=== PATIENT | female | born 1980 | race Two or more races ===

== ENCOUNTER 2016-08-11 13:12 | Emergency (ER) | payer OTHER ==
--- NOTE | 2016-08-11 14:57 | UCPHY ---
H & P Time Seen by Provider: 08/11/16 14:39 Patient Type: Established HPI/ROS: CHIEF COMPLAINT: kicked in the R knee overlying the patella ligament HISTORY OF PRESENT ILLNESS: 35-year-old female playing soccer yesterday. She was collided by another player. There is no actual direct fall to the ground. She believes being struck overlying the distal aspect of the patella by the opponents knee directly. She was pain with walking as a 20 any weight on the leg. When she is laying flat the bed really does not bother her much. She is right-handed. 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 She was applying some icy Hot substance to it REVIEW OF SYSTEMS: Constitutional - no fevers or chills Musculoskeletal - no joint or muscle pain. Integument - no rashes or wounds Neurological - no numbness, tingling, or paresthesias. Smoking Status: Never smoked Physical Exam: General Appearance: Alert, no distress. Afebrile. Extremities: With respect to the right knee the neurovascular status intact. The skin is clear. There is particular tenderness over the patellar ligament as of the patellar tendon itself but there is no effusion. The Elaine's and drawer signs are negative. The collateral ligaments are intact in solid without any pain. I am unable to perform a Kadeem's secondary to the decreased range of motion as she can only get to 90 Neurological: NV intact. Skin: Skin is intact. Warm and dry, no rashes. no lymphangitis. . Constitutional: Initial Vital Signs Temperature (C) 36.7 C 08/11/16 13:31 Heart Rate 77 08/11/16 13:31 Respiratory Rate 18 08/11/16 13:31 Blood Pressure 101/77 08/11/16 13:31 O2 Sat (%) 94 08/11/16 13:31 O2 Delivery Mode Room Air Allergies/Adverse Reactions: No Known Allergies Allergy (Verified 08/11/16 13:31) Home Medications: Medication Instructions Recorded Thyroid 11/12/13 Medical Decision Making Differential Diagnosis: The differential diagnosis includes but is not limited to: Fracture, Sprain, Strain, Dislocation, Nerve injury, contusion Departure - Departure Disposition: Home, Routine, Self-Care Clinical Impression: patellar ligament contusion Knee contusion Qualifiers: Encounter type: initial encounter Laterality: right Qualified Code(s): S80.01XA - Contusion of right knee, initial encounter Condition: Good Instructions: Contusion in Adults (ED), Knee Pain (ED) Additional Instructions: Ice Use an ice cube for ice massage to the area specifically Ibuprofen 600 mg, 3 times a day, as needed for a week - with food. Walk as well as your able, but avoid stairs. Use your good leg up, then the bad leg down the stairs first. Referrals: MIKA JAMES,. [Primary Care Provider] - As per Instructions - PQRS PQRS Measurement: NA
[2016-08-11 15:02] VITALS: BP 110/78; PULSE 75; RESP 16; TEMP 97.9; O2SAT 96
== END 2016-08-11 15:02 | disposition home or self-care (01) ==
LOC: CED 13:12
DX: S80.01XA Contusion of right knee, initial encounter (principal); W50.0XXA Accidental hit or strike by another person, initial encounter; Y93.66 Activity, soccer
CPT/HCPCS: 99214-PO; G0463-PO

== ENCOUNTER 2017-08-16 21:19 | Emergency (ER) | payer SELFPAY ==
--- NOTE | 2017-08-16 21:33 | EDPHY ---
H & P Time Seen by Provider: 08/16/17 21:26 HPI/ROS: 36 yo F presents c/o twisted her ankle playing soccer 2 weeks ago and continues to have pain, able to walk, minimal swelling, hurts more when moving side to side. Review of systems General no fever no chills no weakness HEENT no eye pain no eye discharge. No eye redness, no sore throat Respiratory no cough, no shortness of breath Cardiac no chest pain, no peripheral edema GI no abdominal pain, no diarrhea, no constipation, no nausea, no vomiting no flank pain, no hematuria, no dysuria Musculoskeletal no myalgias, positive joint pain Heme no easy bruising, no easy bleeding Endo no polyuria, no polydipsia Skin no rashes, no pruritus Neuro no syncope, no dizziness, no headaches Psych is no suicidal ideation, no homicidal ideation Past Medical/Surgical History: non contributory Social History: no alcohol, tobacco or drug use Smoking Status: Never smoked Physical Exam: 36 yo F alert and oriented in nad non toxic appearance at, nc no resp distress heart rrr ext right ankle ttp at lateral malleolus, minimal swelling, from, no laxity, pos ttp of 5th metatarsal Allergies/Adverse Reactions: No Known Allergies Allergy (Unverified 08/16/17 21:23) Home Medications: Medication Instructions Recorded Levothyroxine 08/16/17 Medical Decision Making ED Course/Re-evaluation: pt seen and evaluated for right ankle pain for 2 weeks duration. xray ankle neg foot neg imp right ankle sprain plan edilia wrap f/u pcp Differential Diagnosis: differential diagnosis considered but not limited to ankle sprain, foot sprain, ankle fracture, 5th metatarsal fracture Departure - Departure Disposition: Home, Routine, Self-Care Clinical Impression: Right ankle sprain Condition: Good Instructions: Ankle Sprain (ED) Referrals: [facility] [Provider Group] - As per Instructions Print Language: Turkish
== END 2017-08-16 22:15 | disposition home or self-care (01) ==
LOC: MERGE 21:19 → CED 21:19
DX: S93.401A Sprain of unspecified ligament of right ankle, initial encounter (principal); X58.XXXA Exposure to other specified factors, initial encounter; Y99.8 Other external cause status; Y93.66 Activity, soccer
CPT/HCPCS: 73610-PO; 73620-PO